=== PATIENT | male | born 1980 | race Asian ===

== ENCOUNTER 2018-07-30 16:53 | Emergency (ER) | payer OTHER ==
[~2018-07-30] VITALS: Ht 177.8 cm; Wt 81.6 kg
[2018-07-30 17:18] LABS: PLATELET COUNT 342 K/uL (142-355)
[2018-07-30 18:20] VITALS: BP 140/87; TEMP 98.5
== END 2018-07-30 18:20 | disposition short-term general hospital (02) ==
LOC: ED 16:53
PROVIDERS: Emergency Medicine
DX: S31.110A Laceration without foreign body of abdominal wall, right upper quadrant without penetration into peritoneal cavity, initial encounter (principal); X99.1XXA Assault by knife, initial encounter
CPT/HCPCS: 36415; 80053; 82150; 83690; 85027; 90471; 93005; 96365; 96375; 99285; J2270; J2405; J2543